=== PATIENT | male | born 1945 | race Caucasian/White ===

== ENCOUNTER 2020-05-02 12:11 | Outpatient (NON) | payer MEDICARE, OTHER, SELFPAY ==
[2020-05-02 22:30] LABS: SARS-CoV-2 RNA PCR Negative
== END 2020-05-02 12:12 ==
LOC: ANHCOVIDDT 12:12
PROVIDERS: PCP Family Medicine; Visit Provider Nurse Practitioner Family
DX: Z20.828 Contact with and (suspected) exposure to other viral communicable diseases (principal); R05 Cough
CPT/HCPCS: 87635; C9803; U0003

== ENCOUNTER → 2021-01-17 07:29 | Outpatient (CLI) | payer MEDICARE, OTHER, SELFPAY ==
--- NOTE | ~2021-01-17 | MR_ITS ---
EXAMINATION: MR knee RT wo con DATE: 01/17/2021 08:20 INDICATION: Right knee pain. TECHNIQUE: Magnetic resonance imaging (MRI) of the right knee was performed without intravenous contr ast. Sequences included axial PD-weighted FS FSE, coronal PD-weighted FSE and PD-weighted FS FSE, sag ittal PD-weighted FSE, and sagittal T2-weighted FS FSE. COMPARISON: None. FINDINGS: Medial compartment: There is a radial tear of medial meniscus at the junction of the body and posterior horn. There is ca rtilage surface irregularity of femoral condyle and tibial condyle. Tiny osteophytes are noted. Lateral compartment: Lateral meniscus is normal. There is shallow partial-thickness cartilage loss of tibial condyle invol ving the medial, central, and posterior articular surface. There is cartilage surface irregularity of the femoral condyle. Tiny osteophytes are noted. Patellofemoral compartment: There is shallow partial-thickness cartilage loss of patellar medial facet. There is deep partial thi ckness cartilage loss of distal patellar median ridge and lateral facet with mild subchondral edema-l chelo marrow signal intensity. There is deep partial-thickness cartilage loss of medial trochlea with m ild subchondral edema-like marrow signal intensity. Osteophytes are noted. Ligaments and tendons: The anterior and posterior cruciate ligaments are normal. There are changes of prior sprain of medial collateral ligament and fibular collateral ligament characterized by thickening and increased signal intensity proximally. Edema around the medial collateral ligament may be from the medial meniscus te ar. Fluid: There is a small knee joint effusion. There is a small Abdalla's cyst. There is mild prepatellar and fam perficial infrapatellar bursitis. IMPRESSION: 1. Moderate chondrosis of patellofemoral compartment and mild chondrosis of medial and lateral compar tments. 2. Tear of medial meniscus. 3. Small knee joint effusion. 4. Small Abdalla's cyst. Reviewed, dictated and finalized at location A. IMPRESSION: 1. Moderate chondrosis of patellofemoral compartment and mild chondrosis of med ial and lateral compartments. 2. Tear of medial meniscus. 3. Small knee joint effusion. 4. Small Abdalla's cyst.
== END ==
DX: M25.561 Pain in right knee (principal); M22.2X1 Patellofemoral disorders, right knee; S83.211A Bucket-handle tear of medial meniscus, current injury, right knee, initial encounter; M25.461 Effusion, right knee; M71.21 Synovial cyst of popliteal space [Baker], right knee
CPT/HCPCS: 73721